=== PATIENT | female | born 1960 | race Caucasian/White ===

== ENCOUNTER 2016-09-02 02:37 | Emergency (ER) | payer OTHER ==
[~2016-09-02] VITALS: Ht 160 cm; Wt 72.6 kg
[2016-09-02] MEDS ORDERED: NORCO 5-325 TA1 EACH PO (02:58)
[2016-09-02 03:55] VITALS: BP 173/74
== END 2016-09-02 04:19 | disposition home or self-care (01) ==
LOC: ER 02:37
DX: S83.91XA Sprain of unspecified site of right knee, initial encounter (principal); M25.461 Effusion, right knee; M25.561 Pain in right knee; F17.210 Nicotine dependence, cigarettes, uncomplicated; W10.9XXA Fall (on) (from) unspecified stairs and steps, initial encounter; Y93.9 Activity, unspecified; Y92.9 Unspecified place or not applicable; Y99.9 Unspecified external cause status